=== PATIENT | male | born 1960 | race Caucasian/White ===

== ENCOUNTER 2019-12-07 05:15 | Emergency (ER) | payer MEDICARE, SELFPAY ==
--- NOTE | ~2019-12-07 | XR_ITS ---
EXAMINATION: XR chest 2V DATE: 12/07/2019 06:34 INDICATION: Confusion. TECHNIQUE: Frontal and lateral views of the chest were obtained on 3 radiographs. COMPARISON: Chest 2 views 06/08/2008 FINDINGS: Calcified right lung nodules are consistent with old granulomatous disease. No pleural effu torrie or pneumothorax. The heart size is normal. IMPRESSION: 1. No acute cardiopulmonary disease. Reviewed, dictated and finalized at location A.
--- NOTE | ~2019-12-07 | CT_ITS ---
EXAMINATION: CT brain wo con DATE: 12/07/2019 06:33 INDICATION: Altered mental status. TECHNIQUE: Computed tomography (CT) of the head was performed without intravenous contrast. The mA wa s adjusted according to patient size. Iterative reconstruction technique was employed. The dose-lengt h product was 681.00 mGy-cm. COMPARISON: None FINDINGS: There is an infarct in left parietal lobe. There is no intracranial hemorrhage or abnormal mass lesion. There are scattered areas of low attenuation in the cerebral white matter. The ventricle s are normal in size. There are likely changes of right ocular lens replacement surgery. There is mil d mucosal thickening in the paranasal sinuses. The mastoid air cells are normal. IMPRESSION: 1. Infarct in left parietal lobe, likely acute or subacute. 2. Mild nonspecific cerebral white matter disease, which likely represents chronic small vessel ische liset disease. Reviewed, dictated and finalized at location A. IMPRESSION: 1. Infarct in left parietal lobe, likely acute or subacute. 2. Mild nonspecific cerebral white matter disease, which likely represents quill winder jean small vessel ischemic disease.
[2019-12-07 05:15] VITALS: BP 211/114; PULSE 112; RESP 20; TEMP 36.6; O2SAT 98
[2019-12-07 05:21] VITALS: BP 200/103
[2019-12-07 05:30] VITALS: BP 187/98; PULSE 127
[2019-12-07 05:32] LABS: Glucose Point of Care 185 (65-105)
--- NOTE | 2019-12-07 05:32 | ECG_ITS ---
Measurements Intervals [place] Rate: 102 P: 49 UT: 195 QRS: -60 QRSD: 138 T: 62 QT: 376 QTc: 491 Interpretive Statements SINUS TACHYCARDIA RIGHT BUNDLE BRANCH BLOCK LEFT ANTERIOR FASCICULAR BLOCK BASELINE ARTIFACT- I, III, AVR, AVL, AVF ABNORMAL ECG Electronically Signed On 12-07-2019 7:10:06 CDT by Doc Collazo D.O.
--- NOTE | 2019-12-07 05:44 | ED.AMS ---
HPI - Altered Mental Status General Source: patient and family Mode of arrival: ambulatory Limitations: no limitations History of Present Illness HPI narrative: 59-year-old man comes to the emergency department this evening complaining of waking up with confusion and not feeling well. He woke up his with the symptoms who corroborates his confusion as starting approximately 45 minutes ago. He denies any recent illness, fever, vomiting, diarrhea, dysuria, abdominal pain, facial droop, arm or leg weakness, new numbness, or ataxia. His estimates that he drank approximately 10 drinks last night and that he was tipsy. complaint: confusion Onset (ago): hour(s) (1) Timing confirmed by: spouse Severity: moderate Associated symptoms: malaise Related Data Home Medications Medication Instructions Recorded Confirmed gabapentin 300 mg PO DIRECTED 12/07/19 12/07/19 hydrochlorothiazide 12.5 mg PO DAILY 12/07/19 12/07/19 losartan 50 mg PO DAILY 12/07/19 12/07/19 metoprolol tartrate 100 mg PO DAILY 12/07/19 12/07/19 Allergies Allergy/AdvReac Type Severity Reaction Status Date / Time No Known Allergies Allergy Unknown Unverified 10/27/14 12:00 Review of Systems Constitutional: Constitutional: Denies chills, Denies fever(s) and Denies weakness Eyes: Eyes: Denies change in vision and Denies photophobia ENT: Denies dysphagia, Denies nasal congestion and Denies sore throat Cardiovascular: Cardiovascular: Denies chest pain and Denies radiating jaw, neck or arm pain Respiratory: Respiratory: Denies cough, Denies dyspnea and Denies wheezing Gastrointestinal: Gastrointestinal: Denies abdominal pain, Denies diarrhea, Denies nausea and Denies vomiting Genitourinary: Genitourinary: Denies dysuria and Denies urinary frequency Musculoskeletal: Musculoskeletal: Denies arthralgias and Denies joint swelling Integumentary/Breasts: Skin/Breast: Denies pruritus, Denies erythema and Denies rash Neurologic: Denies vertigo, Denies dizziness and Denies syncope Hematologic/Lymphatic: Hematologic/Lymphatic: Denies easy bleeding and Denies easy bruising Allergic/Immunologic: Allergic/Immunologic: Denies lip swelling and Denies tongue swelling PMF Past Medical History Medical History Hypertension Peripheral neuropathy Type 2 diabetes mellitus Surgical History Surgical History H/O knee surgery History of back surgery Social History Social History (Updated 12/07/19 @ 06:02 by Milton Wallace MD) Smoking status: Never smoker Alcohol intake: current Alcohol use details: about once a week Substance use: never Living arrangements: with family Exam Const: General: no acute distress, alert and ill appearing ( mildly) acutely Orientation/consciousness: patient oriented x3 HENMT: Head: normal to inspection Ears: external ears normal, TM's normal bilaterally and EAC's normal General nose exam: Normal nares present Face and sinus: normal facial exam Mouth: Yes moist mucous membranes Throat: posterior oropharynx normal Eyes: Conjunctivae: conjunctivae normal Pupils: Equal, round and reactive pupils present EOM: EOMs intact bilaterally Resp: Effort & Inspection: normal respiratory effort and not labored Auscultation: clear to auscultation bilaterally, no rales, no rhonchi and no wheezes Cardio: Rate: tachycardic Rhythm: regular rhythm Heart sounds: no murmurs GI: GI Palp: Yes Soft to palpation and No Tenderness to palpation present (GI) Auscultation: normal bowel sounds Skin: General skin exam: normal color, no jaundice and no pallor Rashes: no rashes Neuro: General: patient oriented x3, moves all extremities, no focal motor deficits and CN's II-XI intact bilaterally Speech: normal speech Gait exam (Neuro): Normal gait present Extrem: General: normal to inspection and no clubbing, cy
[2019-12-07 06:00] VITALS: BP 165/93; PULSE 95; RESP 20; O2SAT 93
[2019-12-07 06:15] VITALS: BP 167/92; PULSE 100; RESP 20; O2SAT 98
[2019-12-07 06:17] LABS: HCO3 ABG 25.6 mmol/L (23-29); Oxygen Content ABG 18.6 %vol (16.0-22.0); Oxygen Saturation ABG 95.2 % (95-97); Oxyhemoglobin 94.2 % (94-100); PCO2 ABG 40.9 mmHg (35-45); PO2 ABG 77.6 mmHg (80-90); pH ABG 7.42 (7.35-7.45)
[2019-12-07 06:19] LABS: Basophils Absolute Auto 0.04 K/mm3 (0.00-0.10); Basophils Percent Auto 0.9 % (0.0-1.0); Eosinophils Absolute Auto 0.37 K/mm3 (0.02-0.50); Eosinophils Percent Auto 8.1 % (1.0-6.0); Hematocrit 40.6 % (40.0-54.0); Hemoglobin 13.7 g/dL (14.0-18.0); Immature Granulocyte Absolute 0.04 K/mm3 (0.00-0.00); Immature Granulocyte Percent A 0.9 % (0.0-0.0); Lymphocytes Absolute Auto 0.81 K/mm3 (1.10-4.50); Lymphocytes Percent Auto 17.7 % (18.0-42.0); Mean Corpuscular HGB Conc 33.7 g/dL (32.0-36.0); Mean Corpuscular Hemoglobin 30.2 pg (27.0-31.0); Mean Corpuscular Volume 89.6 fL (78.0-102.0); Mean Platelet Volume 10.5 fl (8.7-11.0); Monocytes Absolute Auto 0.41 K/mm3 (0.10-0.90); Neutrophils Absolute Auto 2.9 K/mm3 (1.7-7.2); Neutrophils Percent Auto 63.4 % (50.0-70.0); Platelet Count Result 175 K/mm3 (150-420); Red Blood Count 4.53 M/mm3 (4.70-6.10); Red Cell Distribution Width 12.8 % (11.6-14.4); White Blood Count 4.6 K/mm3 (4.8-10.8)
--- NOTE | 2019-12-07 06:19 | PC.NURSE ---
pt more alert, able to state month , day, year, president. taken to xray via xray staff and wheelchair.
[2019-12-07 06:20] LABS: Device ROOM AIR; Modified Allen's Test Pass; Site Drawn LEFT RADIAL
--- NOTE | 2019-12-07 06:30 | PC.NURSE ---
pt returned from xray, states feeling a little better, skin color pink, denies dizziness.
[2019-12-07 06:31] LABS: Partial Thromboplastin Time 28.7 SEC (22.3-31.6); Prothrombin Time 10.7 Seconds (9.64-11.0)
[2019-12-07 06:41] LABS: Appearance Urine Clear (Clear); Bilirubin Urine Negative (Negative); Color Urine Yellow (Yellow); Glucose Urine UA Negative (Negative); Ketones Urine Negative (Negative); Leukocyte Esterase Ur Negative LEU/UL (Negative); Nitrate Urine Negative (Negative); Protein Urine 2+ (Negative); Specific Grav Ur >= 1.030 (1.010-1.020); Urobilinogen Urine 0.2 mg/dL (0.2-1.0)
[2019-12-07 06:42] LABS: Lactic Acid Reflex 1.7 mmol/L (0.4-2.0)
[2019-12-07 06:44] LABS: Alanine Aminotransferase 33 U/L (16-63); Albumin Level 3.9 g/dL (3.4-5.0); Alkaline Phosphatase 83 U/L (46-116); Ammonia 10 umol/L (11-32); Anion Gap 10 mmol/L (8-16); Aspartate Amino Transferase 19 U/L (15-37); Bilirubin,Total 0.5 mg/dL (0.00-1.00); Blood Urea Nitrogen 23 mg/dL (7-18); Calcium 9.1 mg/dL (8.5-10.1); Carbon Dioxide 26 mmol/L (21-32); Chloride 105 mmol/L (98-108); Estimated Glomerular Filt Rate > 60; Glucose 198 mg/dL (70-99); Osmolality Calculated 301 mOsm/kg (285-295); Potassium 3.9 mmol/L (3.5-5.1); Salicylate 0.5 mg/dL (2.8-20.0); Sodium 141 mmol/L (136-145); Thyroid Stimulating Hormone 2.19 uIU/mL (0.36-3.74); Troponin I 0.04 ng/mL (0.00-0.056)
[2019-12-07 06:45] LABS: Acetaminophen 0 ug/mL (10-30); Ethanol < 3 mg/dL (0-6)
[2019-12-07 06:45] LABS: Add Urine Microscopic? YES; Bacteria Urine Trace /hpf; Blood Urine Trace-Intact (Negative); RBC Urine 0-2 /hpf (0-2); Squamous Epithelial Cell Urine Occasional /hpf (Few); WBC Urine 0-3 /hpf (0-3)
--- NOTE | 2019-12-07 06:46 | PC.NURSE ---
call to [facility] in [place] spoke with mike in the er. per pt request
[2019-12-07] MEDS: THIAMINE HCL 200 MG/2 ML VIAL 100 MG IV PUSH (06:50)
[2019-12-07] MEDS: SODIUM CHLORIDE 0.9% IV 1,000 ML 999 ML IV CONT (06:50)
[2019-12-07 06:51] LABS: Amphetamine Screen Urine Negative (Negative); Barbiturate Screen Urine Negative (Negative); Benzodiazepines Screen Urine Negative (Negative); Cannabinoid Screen Urine Negative (Negative); Cocaine Screen Urine Negative (Negative); Methadone Screen Urine Negative (Negative); Opiate Screen Urine Negative (Negative); Phencyclidine Screen Urine Negative (Negative)
--- NOTE | 2019-12-07 07:10 | PC.NURSE ---
pt resting per cot. dr jenkins has resumed care. update given. awaiting call back from dr acharya.
--- NOTE | 2019-12-07 07:43 | PC.NURSE ---
no return call from dr acharya, call back to exchange, spoke with susan. awaiting return call
--- NOTE | 2019-12-07 08:14 | PC.NURSE ---
0807 no call returned, call to [facility] spoke with sara, dr jenkins speaking with DR TREVIÑO.
--- NOTE | 2019-12-07 08:32 | PC.NURSE ---
call from [facility], unable to accept pt. pt request [facility], call placed.
--- NOTE | 2019-12-07 08:37 | PCDIET ---
spoke with serina at [facility], awaiting call
--- NOTE | 2019-12-07 08:42 | PC.NURSE ---
per dr jenkins, hold activase until consult with [facility] neuro. pt notified.
--- NOTE | 2019-12-07 09:03 | PC.NURSE ---
erp speaking with [facility].
--- NOTE | 2019-12-07 09:09 | ED.GENADULT ---
HPI - General Adult General Chief complaint: Altered Mental Status Stated complaint: Confusion Time Seen by Provider: 12/07/19 05:44 Source: patient and family Mode of arrival: ambulatory Limitations: no limitations Related Data Home Medications Medication Instructions Recorded Confirmed gabapentin 300 mg PO DIRECTED 12/07/19 12/07/19 hydrochlorothiazide 12.5 mg PO DAILY 12/07/19 12/07/19 losartan 50 mg PO DAILY 12/07/19 12/07/19 metoprolol tartrate 100 mg PO DAILY 12/07/19 12/07/19 Allergies Allergy/AdvReac Type Severity Reaction Status Date / Time No Known Allergies Allergy Unknown Unverified 10/27/14 12:00 [facility] Past Medical History Medical History Hypertension Peripheral neuropathy Type 2 diabetes mellitus Surgical History Surgical History H/O knee surgery History of back surgery Social History Social History (Updated 12/07/19 @ 06:02 by Milton Wallace MD) Smoking status: Never smoker Alcohol intake: current Alcohol use details: about once a week Substance use: never Living arrangements: with family Course Course Emergency Course: d/w DR Pandey (admission) who refuses transfer after 3.5 hours of waiting, requests we call [facility]. Patient declines transfer to [facility]. They would prefer to GOTO [facility]. Called and d/w [facility]. Dr Lynn (Hospitalist), and DR Worthy (NS[place]) who wish to defer TPA (pt has now fallen out of 3 hour window), but request Asa 325mg PO x 1 and Transfer to [facility] for CVA workup. D/W Pt and his who agree with this decision. Vital Signs Vital signs: Vital Signs Temperature 98 F 12/07/19 05:15 Pulse Rate 112 H 12/07/19 05:15 Respiratory Rate 20 12/07/19 05:15 Blood Pressure 211/114 H 12/07/19 05:15 Pulse Oximetry 98 12/07/19 05:15 Temperature 98 F 12/07/19 05:15 Pulse Rate 100 12/07/19 06:15 Respiratory Rate 20 12/07/19 06:15 Blood Pressure 167/92 H 12/07/19 06:15 Pulse Oximetry 98 12/07/19 06:15 Transfer Transfered to: Other ([facility]) Transportation: ALS Accepting physician: DR Lynn (Hospitalist), DR Worthy (NSY) Medical Decision Making Vital Signs Vital Signs: Vital Signs Temperature 98 F 12/07/19 05:15 Pulse Rate 112 H 12/07/19 05:15 Respiratory Rate 20 12/07/19 05:15 Blood Pressure 211/114 H 12/07/19 05:15 Pulse Oximetry 98 12/07/19 05:15 Temperature 98 F 12/07/19 05:15 Pulse Rate 100 12/07/19 06:15 Respiratory Rate 20 12/07/19 06:15 Blood Pressure 167/92 H 12/07/19 06:15 Pulse Oximetry 98 12/07/19 06:15 Lab Data Result diagrams: 12/07/19 06:13 12/07/19 06:13 Labs: Lab Results 12/07/19 12/07/19 12/07/19 Range/Units 05:30 06:13 06:13 WBC 4.6 L (4.8-10.8) K/mm3 RBC 4.53 L (4.70-6.10) M/mm3 Hgb 13.7 L (14.0-18.0) g/dL Hct 40.6 (40.0-54.0) % MCV 89.6 (78.0-102.0) fL MCH 30.2 (27.0-31.0) pg MCHC 33.7 (32.0-36.0) g/dL RDW 12.8 (11.6-14.4) % Plt Count 175 (150-420) K/mm3 MPV 10.5 (8.7-11.0) fl Immature Gran % (Auto) 0.9 H (0.0-0.0) % Neut % (Auto) 63.4 (50.0-70.0) % Lymph % (Auto) 17.7 L (18.0-42.0) % [place] % (Auto) 9.0 (2.0-11.0) % Eos % (Auto) 8.1 H (1.0-6.0) % Baso % (Auto) 0.9 (0.0-1.0) % Lymph # (Auto) 0.81 L (1.10-4.50) K/mm3 [place] # (Auto) 0.41 (0.10-0.90) K/mm3 Eos # (Auto) 0.37 (0.02-0.50) K/mm3 Baso # (Auto) 0.04 (0.00-0.10) K/mm3 Abs Immat Gran (auto) 0.04 H (0.00-0.00) K/mm3 Absolute Neuts (auto) 2.9 (1.7-7.2) K/mm3 Absolute Nucleated RBC 0.00 (0.00-0.00) K/mm3 Nucleated RBC % 0.0 (0-0.0) % PT 10.7 (9.64-11.0) Seconds INR 1.0 APTT 28.7 (22.3-31.6) SEC Sodium (136-145) mmol/L Potassium (3.5-5.1) mmol/L
--- NOTE | 2019-12-07 09:28 | PC.NURSE ---
call to [facility], awaiting bed placement per may
[2019-12-07] MEDS: ASPIRIN 81 MG CHEWABLE TABLET 324 MG PO (09:29)
--- NOTE | 2019-12-07 10:27 | PC.NURSE ---
call to check on bed placement , still no bed assigned.
[2019-12-07 10:39] VITALS: BP 139/85; PULSE 84; RESP 20; TEMP 37.1; O2SAT 98
--- NOTE | 2019-12-07 11:02 | PC.NURSE ---
gbaas here, report to maia. pt assisted to ems cot. alert and oriented x4. no deficit noted. no confusion noted
== END 2019-12-07 11:08 | disposition short-term general hospital (02) ==
PROVIDERS: Emergency Medicine; Emergency Provider Family Medicine; PCP Internal Medicine
DX: I63.9 Cerebral infarction, unspecified (principal); I10 Essential (primary) hypertension; E11.42 Type 2 diabetes mellitus with diabetic polyneuropathy; Z79.899 Other long term (current) drug therapy; R82.90 Unspecified abnormal findings in urine
CPT/HCPCS: 36415; 36600; 70450; 71046; 80053; 80307; 81001; 82140; 82805; 82948; 83605; 84443; 84484; 85025; 85610; 85730; 87040; 87077; 87186; 93005; 96361; 96374; 99285; A9270; J2997; J3411; J7030

== ENCOUNTER 2022-02-12 09:16 | Outpatient (CLI) | payer MEDICARE, SELFPAY ==
--- NOTE | ~2022-02-12 | XR_ITS ---
Right Hand Technique: PA, oblique, and lateral views were obtained. Clinical History: Pain Findings: No acute fracture or dislocation is seen. Osseous alignment is anatomic. Mild degenerative changes interphalangeal joint of the thumb noted. Remaining joint spaces are intact. Chondrocalcinosi s of the TFCC noted. Vascular calcifications are present. Impression: No fracture or dislocation. Mild degenerative change of the interphalangeal joint of the thumb. Chondrocalcinosis of the TFCC. Reviewed, dictated and finalized at location M. ER OPERATOR Impression: No fracture or dislocation. Mild degenerative change of the interphalangeal joint of the thumb. Chondrocalcinosis of the TFCC.
== END 2022-02-12 09:17 | disposition home or self-care (01) ==
LOC: CHSLAB 09:21
PROVIDERS: PCP Internal Medicine; Visit Provider Internal Medicine
DX: M79.641 Pain in right hand (principal); M11.241 Other chondrocalcinosis, right hand
CPT/HCPCS: 73130

== ENCOUNTER 2023-05-26 08:23 | Outpatient (RCR) | payer MEDICARE, SELFPAY ==
--- NOTE | 2023-05-16 07:15 | PCPTNOTE ---
patient cancelled due to illness
--- NOTE | 2023-05-26 07:35 | PTOPEVAL1 ---
Assessment and note entered by Ismael Beverly Evaluation Information Assessment Status Evaluation Diagnosis s/p left TKA Onset 05/12/23 Subjective Information pt. reports that he underwent a left TKA on . He states that he has been doing his daily HEP. He reports that he is pleased with his ROM. He states that he is currently using a walker, due to having gout in the left ankle. He reports that prior to surgery he was very active with cutting firewood, caring for his home. He states that he was able to do all IADL's, just with pain. He reports that his goal for therapy is to return to walking normal. Reported Pain Level Pain Score 3: Self Report Assessment PT Clinical Summary Pt. is a 62 year old male who enters the clinic s/ p left TKA. He presents with functional decline, impaired gait, impaired l.e. strength, edema, impaired left knee ROM and pain. Continued skilled PT is indicated in order to improve these areas to allow the pt. to be able to return to normal IADL performance without limitation. Plan of Care Interventions Electrical Stimulation,Gait Training,Hot Pack/Cold Pack,Intermittent Compression,Manual Therapy, Neuro Re-education,Patient/Caregiver Educati, Therapeutic Activities,Therapeutic Exercise PT Services Indicated Yes Treatment Frequency and 3x/week x 12 visits Duration These treatments will address the objective and functional deficits as defined above. The patient will be advanced safely and appropriately in order for the patient to progress towards his/her prior level of function. Additional exercises will be introduced and as well as a comprehensive home exercise program upon discharge, if needed, ?to ensure carryover of functional gains achieved in the clinic. This treatment plan has been reviewed and agreement upon by the patient.
--- NOTE | 2023-05-26 07:36 | OPREHPOC ---
Outpatient Therapy Plan of Care This is a Multidisciplinary Plan of Care that may contain components documented by all disciplines (PT, OT, and ST.) PT Problem 1 PT Problem #1 Knowledge Deficit PT Goal 1 Goal Independent with a HEP addressing strength and mobility mandaen Target Visit 2 PT Problem 2 PT Problem #2 Impaired Gait PT Goal 1 Goal Pt. will be able to ambulate for duration of 6 minutes without an AD over a distance of 900' Target Visit 12 PT Problem 3 PT Problem #3 Impaired Range of Motion PT Goal 1 Goal Pt. will achieve 0-120 degrees left knee active ROM PT Problem 4 PT Problem #4 Impaired Strength PT Goal 1 Goal Pt. will present with 5/5 gross l.e. strength PT Problem 5 PT Problem #5 Impaired Functional Mobil PT Goal 1 Goal Pt. will be able to navigate steps with reciprocal pattern. Target Visit 12
--- NOTE | 2023-05-30 07:05 | PCPTNOTE ---
Patient cancelled session today stating he can not make it in this morning.
--- NOTE | 2023-06-23 07:17 | PCPTNOTE ---
Patient cancelled today's session. No reason given.
--- NOTE | 2023-06-30 07:53 | PTOPPROG ---
Assessment and note entered by Ismael Beverly Evaluation Information Assessment Status Progress Diagnosis s/p left TKA Onset 05/12/23 Subjective Information Pt. reports that he was able to make a trip to [place] over the weekend. He states that his knee pain is minimal and only noted when on his feet for long periods. He reports that he notices weakness with walking, but has been attempting to walk up stairs with normal step over step pattern. Assessment PT Clinical Summary Mr. Cantu has attended a total of 10 treatment sessions. He demonstrates excellent progress towards all goals, despite remaining deficits in strength and ROM. Recommend continued skilled PT per pt. POC continuing to focus on remaining deficits. Plan of Care Interventions Gait Training,Manual Therapy,Patient/Caregiver Educati,Therapeutic Activities,Therapeutic Exercise PT Services Indicated Yes Treatment Frequency and 1x/week x 2 visits Duration These treatments will address the objective and functional deficits as defined above. The patient will be advanced safely and appropriately in order for the patient to progress towards his/her prior level of function. Additional exercises will be introduced and as well as a comprehensive home exercise program upon discharge, if needed, ?to ensure carryover of functional gains achieved in the clinic. This treatment plan has been reviewed and agreement upon by the patient.
--- NOTE | 2023-08-13 11:43 | PCPTNOTE ---
Mr. Cantu contacted the clinic yesterday stating that he was feeling well after returning from vacation and failed to schedule. He reports that he has been exercising and would like to be discharged. Refer to progress note on 06/30/23 for discharge status. Ismael Beverly, MPT
== END 2023-06-30 20:00 | disposition home or self-care (01) ==
LOC: CHSPT 08:23
PROVIDERS: PCP Internal Medicine; Visit Provider Orthopaedic Surgery
DX: M17.12 Unilateral primary osteoarthritis, left knee (principal); M25.562 Pain in left knee; G89.29 Other chronic pain
CPT/HCPCS: 97016; 97110; 97116; 97161; 97530

== ENCOUNTER 2023-07-04 08:21 | Outpatient (CLI) | payer MEDICARE, SELFPAY ==
--- NOTE | ~2023-07-04 | XR_ITS ---
EXAMINATION: XR finger 2nd LT min 2V DATE: 07/04/2023 08:38 INDICATION: Left index finger abscess. TECHNIQUE: 3 views of left hand second digit were obtained. COMPARISON: None. FINDINGS: Bone alignment is normal. No fracture. There is mild osteoarthritis of second distal interp halangeal joint. There is soft tissue swelling dorsal to second distal interphalangeal joint. Vascula r calcifications are noted. IMPRESSION: 1. Soft tissue swelling dorsal to second distal interphalangeal joint. No evidence of osteomyelitis. Reviewed, dictated and finalized at location A. IMPRESSION: 1. Soft tissue swelling dorsal to second distal interphalangeal joint. No evide nce of osteomyelitis.
== END 2023-07-04 08:22 | disposition home or self-care (01) ==
LOC: CHSIMG 08:25
PROVIDERS: PCP Internal Medicine; Visit Provider Internal Medicine
DX: L02.512 Cutaneous abscess of left hand (principal); M79.89 Other specified soft tissue disorders
CPT/HCPCS: 73140

== ENCOUNTER 2023-08-07 06:55 | Outpatient (CLI) | payer MEDICARE, SELFPAY ==
--- NOTE | ~2023-08-07 | MR_ITS ---
MRI of the left hand Clinical history: Septic arthritis, osteomyelitis TECHNIQUE: Axial T1-weighted, T1 fat-sat, and T2 fat-sat images, coronal T1-weighted and T2 fat-sat i mages, and sagittal T1-weighted and T2 fat-sat images were acquired. Following intravenous administra tion of 20 cc MultiHance gadolinium, T1-weighted fat-sat imaging was performed in the axial and coron al planes. FINDINGS: There is T1 hypointense signal involving the distal phalanx and the distal portion of the m iddle phalanx of the second digit. There are areas of cortical destruction, especially the proximal p ortion of the distal phalanx. Findings are compatible with osteomyelitis and septic arthritis at the second DIP joint. There is extensive marrow edema diffusely involving the second proximal and middle phalanges. Remaining visualized osseous structures are intact. Remaining visualized joints are intact , aside from minimal degenerative changes. There is prominent, diffuse soft tissue edema and swelling of the distal aspect of the index finger, diffuse enhancement but no distinct fluid collection. Visualized tendons are intact. No fluid collection/abscess evident. Possible soft tissue ulcer about the second DIP joint region. IMPRESSION: Findings compatible with septic arthritis and osteomyelitis involving and about the second DIP joint, as detailed above. Probable extensive surrounding soft tissue infection and swelling with possible ulceration but no haylee inable abscess. Reviewed, dictated and finalized at location . IMPRESSION: Findings compatible with septic arthritis and osteomyelitis involving and about the second DIP joint, as detailed above. Probable extensive surrounding soft tissue infection and swelling with possible ulceration but no drainable abscess.
== END 2023-08-07 06:56 | disposition home or self-care (01) ==
LOC: CHSIMG 06:57
PROVIDERS: PCP Internal Medicine; Visit Provider Internal Medicine
DX: M86.9 Osteomyelitis, unspecified (principal)
CPT/HCPCS: 73220; A9577

== ENCOUNTER 2023-12-04 09:03 | Outpatient (CLI) | payer MEDICARE, SELFPAY | END 2023-12-04 09:04 | disposition home or self-care (01) | LOC: CHSIMG 09:06 | PROVIDERS: PCP Internal Medicine; Visit Provider Internal Medicine Infectious Disease | DX: E66.01 Morbid (severe) obesity due to excess calories (principal); Z68.35 Body mass index [BMI] 35.0-35.9, adult; M86.9 Osteomyelitis, unspecified | CPT/HCPCS: 99199 ==

== ENCOUNTER 2023-12-11 08:34 | Outpatient (CLI) | payer MEDICARE, SELFPAY ==
--- NOTE | ~2023-12-11 | MR_ITS ---
EXAMINATION: MR hand LT wo con DATE: 12/11/2023 09:49 INDICATION: Left hand osteomyelitis TECHNIQUE: Magnetic resonance imaging (MRI) of the left hand was performed without intravenous contra st. Sequences included axial, sagittal and coronal T1-weighted FSE and fluid sensitive FSE STIR. COMPARISON: None. FINDINGS: There is loss of bone stock at the base of the second distal phalanx and head of the middle phalanx w hich could be related to sequela of chronic osteomyelitis related to septic arthritis at the second d istal interphalangeal joint or interval debridement/osteotomies. There is loss of T1 fat signal and i ncreased fluid signal in the remaining portion of the second distal phalanx and at the remaining diap hysis of the middle phalanx suspicious for ongoing osteomyelitis. There is suggestion of a persistent small joint effusion at the distal interphalangeal joint on the sagittal images. There is suggestion of a draining sinus tract extending to the skin surface from the dorsal aspect of the joint space. N o other abnormal fluid collections to suggest abscess. There is normal marrow signal throughout the r emainder of the bones of the hand which are normal alignment. Mild osteoarthritis at the first carpal metacarpal and first interphalangeal joints. The distal extensor tendon to the second digit becomes indistinct distal to the midportion of the middle phalanx without a discrete fluid signal intensity t ear defect more likely related to tendinopathy. The flexor tendon to the second digit as well as the remaining extensor and flexor tendons appear to remain intact. IMPRESSION: 1. Progressive bone loss at the base of the second distal and second toe phalanges with increased flu id and decreased T1 marrow fat signal suspicious for ongoing acute on chronic osteomyelitis secondary to distal interphalangeal septic arthritis. Reviewed, dictated and finalized at location A. IMPRESSION: 1. Progressive bone loss at the base of the second distal and second toe phalan ges with increased fluid and decreased T1 marrow fat signal suspicious for ongo ing acute on chronic osteomyelitis secondary to distal interphalangeal septic a rthritis.
== END 2023-12-11 08:35 | disposition home or self-care (01) ==
PROVIDERS: PCP Internal Medicine; Visit Provider Internal Medicine Infectious Disease
DX: E66.01 Morbid (severe) obesity due to excess calories (principal); Z68.35 Body mass index [BMI] 35.0-35.9, adult; M86.9 Osteomyelitis, unspecified
CPT/HCPCS: 73218